=== PATIENT | male | born 1960 | race Caucasian/White ===

== ENCOUNTER 2022-09-19 09:14 | Emergency (ER) | payer SELFPAY ==
[2022-09-19 09:15] VITALS: BP 150/86; PULSE 83; RESP 18; TEMP 36.6; O2SAT 100; BMI 32.6
[2022-09-19] MEDS: Ketorolac 30 MG/ML Syringe IM (11:33)
[2022-09-19] MEDS: diazePAM 5 MG Tablet PO (11:34)
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
== END 2022-09-19 13:00 | disposition home or self-care (01) ==
PROVIDERS: Emergency Provider Emergency Medicine; Visit Provider Emergency Medicine
DX: S39.012D Strain of muscle, fascia and tendon of lower back, subsequent encounter (principal); F17.210 Nicotine dependence, cigarettes, uncomplicated; V63 Occupant of heavy transport vehicle injured in collision with car, pick-up truck or van
CPT/HCPCS: 96372; 99283

== ENCOUNTER → 2023-02-24 | Outpatient (CLI) | payer SELFPAY ==
--- NOTE | 2023-02-24 15:21 | RAD_ITS ---
INDICATION: COPD, smoker EXAMINATION/TECHNIQUE: X-RAY - XR Chest 2 Views COMPARISON: None. FINDINGS: LINES/DEVICES: None. LUNGS: Diffuse coarsening of interstitial markings with reticular nodular appearance. No consolidations, vascular congestion or pleural effusions. MEDIASTINUM AND CARDIOVASCULAR STRUCTURES: Cardiac silhouette within normal limits. BONES AND SOFT TISSUES: No acute abnormalities. RAD/Chest PA and Lateral IMPRESSION: Interstitial infiltrates of unknown chronicity. Findings could represent chronic interstitial lung disease or more acute process including atypical or viral pneumonitis. In the absence of older chest x-rays for comparison short-term follow-up is recommended. Electronically Signed: Giancarlo Vásquez MD at 17:10 EDT ,
[2023-02-24 15:53] LABS: Absolute Lymphocyte Count 1.48 X10^3/uL (0.83-4.51); Absolute Neutrophil Count 12.5 X10^3/uL (2.0-7.7); Basophil# 0.12 X10^3/uL; Basophil% 0.7 % (0-1); Eosinophil# 0.88 X10^3/uL; Eosinophils% 5.1 % (0-5); Hemoglobin 18.4 g/dL (13.0-16.5); Lymphocyte # 1.48 X10^3/ul (0.83-4.51); Lymphocyte % 8.7 % (19-41); Mean Corp Hgb Conc 32.6 g/dL (32-36); Mean Corpuscular Hgb 28.9 pg (27.0-32.0); Mean Corpuscular Volume 88.5 fL (80-94); Mean Platelet Vol. 9.6 fl (6.2-12.0); Monocyte# 1.93 X10^3/uL; Monocyte% 11.3 % (0-10); NRBC Flagged by Analyzer 0 % (0-5); Neutrophil # 12.53 X10^3/uL (2.7-7.7); Neutrophil % 73.3 % (47-70); POSITIVE DIFFERENTIAL YES; Platelet Count 248 K/mm3 (150-450); RBC Distribution Width CV 14.2 % (11.6-14.6); RBC Distribution Width SD 44.7 fl (35.1-43.9); Red Blood Count 6.37 M/mm3 (4.6-6.2); White Blood Count 17.1 K/mm3 (4.4-11.0)
[2023-02-24 16:33] LABS: BNP,B-Type NATRIURETIC PEPTIDE 3.2 pg/mL (0-100)
[2023-02-24 16:53] LABS: Differential Indicated SCAN CRITERIA MET; Hematocrit 56.4 % (40-54)
[2023-02-24 17:21] LABS: Differential Comment SCANNED
[2023-02-25 15:04] LABS: Pathologist Review Reviewed
== END | disposition home or self-care (01) ==
PROVIDERS: Referring Provider Internal Medicine; Visit Provider Internal Medicine
DX: R06.02 Shortness of breath (principal); J44.1 Chronic obstructive pulmonary disease with (acute) exacerbation; R05.9 Cough, unspecified
CPT/HCPCS: 36415; 71046; 83880; 85025

== ENCOUNTER → 2023-02-25 | Outpatient (CLI) | payer SELFPAY ==
--- NOTE | 2023-02-25 16:16 | PFT ---
INTRODUCTION: The patient is a 62-year-old male that presents for pulmonary function studies secondary to a diagnosis of shortness of breath. Respiratory therapy reported that the patient had difficulty with testing due to tachypnea and stated that the patient's flow-volume loop was not reproducible. The patient was not able to take maximal breath for DLCO. INTERPRETATION: Forced expiration spirometry demonstrates the presence of a severe large airways obstructive ventilatory impairment. There was no significant response to aerosolized bronchodilators. Body plethysmography was performed and revealed an elevated RV to 146% of predicted, indicative of underlying air trapping. Diffusing capacity by single breath CO was within normal limits. IMPRESSION: Irreversible severe large airways obstructive ventilatory impairment with associated air trapping.
== END | disposition home or self-care (01) ==
LOC: PSN 08:42
PROVIDERS: PCP Nurse Practitioner Family; Referring Provider Internal Medicine; Visit Provider Internal Medicine
DX: R06.02 Shortness of breath (principal); R05.9 Cough, unspecified; F17.200 Nicotine dependence, unspecified, uncomplicated
CPT/HCPCS: 94060; 94726; 94729